=== PATIENT | female | born 1970 | race American Indian/Alaskan Native ===

== ENCOUNTER 2018-08-20 13:00 | Observation (INO) | payer BC ==
[2018-08-20 13:28] VITALS: BMI 38.2
[2018-08-20] MEDS ORDERED: Nitroglycerin 50mg in D5W 50 MG/250 ML BOTTLE IV PRN (13:41)
[2018-08-20 13:48] LABS: BASO # 0.02 K/mm3 (0.0-2.0); BASO % 0.2 % (0.0-3.0); EOS # 0.2 (0.0-0.7); EOS % 1.8 % (1.5-5.0); GRAN # 5.88 (1.4-6.5); GRAN % 64.5 % (50.0-68.0); HEMOGLOBIN 12.8 g/dL (12.0-16.0); LYMPH # 2.5 (1.2-3.4); LYMPH % 27.9 % (22.0-35.0); MEAN CELL VOLUME 88.5 fl (80.0-105.0); MEAN CORPUSCULAR HEMOGLOBIN 28.4 pg (25.0-35.0); MEAN CORPUSCULAR HGB CONC 32.1 g/dl (31.0-37.0); MEAN PLATELET VOLUME 9.5 fl (7.0-11.0); MONO # 0.5 (0.1-0.6); MONO % 5.6 % (1.0-6.0); RBC 4.51 10^6/uL (3.5-6.1); WHITE BLOOD COUNT 9.1 10^3/uL (4.5-11.0)
--- NOTE | 2018-08-20 13:49 | ED PDOC ---
Arrival/HPI - General Chief Complaint: High Blood Pressure Time Seen by Provider: 08/20/18 13:06 Historian: Patient - History of Present Illness Narrative History of Present Illness (Text): 08/20/18 13:48 48 F with PMHx of hypertension, brought into the Emergency department by EMS from work with cc of elevated BP at 160/120. Pt reports she did not take her medication for htn today. Pt notes change in vision, stating she saw "stars" from 10:00-12:00, indicating this has happened in the past when her BP was elevated. Patient notes feeling palpitations after taking double shot espresso to work. Patient states her legs always swell up and it is currently no different from baseline, and notes shortness of breath that is no different from baseline. Pt denies headache, chest pain, dizziness, or any other complaints at this time. PMD: Yasemin Rea Time/Duration: Prior to Arrival Symptom Onset: Sudden Symptom Course: Unchanged Activities at Onset: Light Past Medical History - Provider Review Nursing Documentation Reviewed: Yes - Cardiac Hx Cardiac Disorders: Yes Hx Hypertension: Yes - Psychiatric Hx Substance Use: No Family/Social History - Physician Review Nursing Documentation Reviewed: Yes Family/Social History: Unknown Family HX Smoking Status: Never Smoked Hx Alcohol Use: No Hx Substance Use: No Allergies/Home Meds Allergies/Adverse Reactions: Allergies No Known Allergies Allergy (Verified 08/20/18 13:28) Review of Systems - Physician Review All systems were reviewed & negative as marked: Yes Physical Exam - Physical Exam Narrative Physical Exam (Text): Gen: VS reviewed, alert, well developed, well nourished, nontoxic, mild distress Eye: EOMI, PERRL Neck: no JVD, supple, no adenopathy CV: Rapid heart rate, normal rhythm. Pulm: no distress, clear to auscultation, no wheeze, no rhonchi, breath sounds equal, no rales Abd: soft, nontender, no guarding, no rebound, no rigidity Ext: pitting edema in bilateral lower extremities Skin: good color, no rash, no cyanosis Psych: responds appropriately to questions, normal affect Neuro: oriented x3, CN2-12 intact grossly, motor intact, sensation intact Vital Signs Reviewed: Yes Vital Signs Temp Pulse Resp BP Pulse Ox 08/20/18 13:00 98.2 F 102 H 18 195/139 H 97 Temperature: Afebrile Blood Pressure: Hypertensive Pulse: Tachycardic Respiratory Rate: Normal Appearance: Positive for: Well-Appearing, Non-Toxic, Comfortable Pain Distress: None Mental Status: Positive for: Alert and Oriented X 3 Medical Decision Making ED Course and Treatment: 08/20/18 13:30 Impression: 48 F brought into the Emergency department from work for elevated BP at 160/120 Differential Diagnosis included but are not limited to: Plan: -- EKG -- Labs -- X-Ray of chest -- Nitroglycerin -- Infertility Nurse -- POC Urine test -- Reassess and disposition Progress Notes: 08/20/18 17:21 workup unremarkable however patient remains tachycardic. will admit for observation, cardiac monitoring of heart rate and blood pressure. 08/20/18 19:15 patient is aware of incidental breast finding on CT and will follow up with pcp regarding recommended mammogram - RAD Interpretation Narrative RAD Interpretations (Text): X-Ray of chest reviewed by radiologist, shows: Dictated by: Wendy Banuelos MD Dictated Date/Time: 08/20/18 1415 Impression: No active pulmonary disease. Radiology Orders: 08/20/18 13:35 CHEST PORTABLE [RAD] Stat Gun Tester: Radiologist - EKG Interpretation EKG Interpretation (Text): 08/20/18 13:58 1323: sinus tachycardia at 102 bpm, nml qrs, nml axis, no acute sttw abn Interpreted by ED Physician: Yes - Medication Orders Current Medication Orders: Nitroglycerin/Dextrose (Nitroglycerin 50 Mg/250 Ml D5w) 50 mg in 250 mls @ 1.5 mls/hr IV .Q24H PRN; Protocol PRN Reason: hypertension - Scribe Statement The provider has reviewed the documentation as recorded by the Scribe Christine Davis All medical record entries made by the Scribe were at my direction and personally dictated by me. I have reviewed the chart and agree that the record accurately reflects my personal performance of the history, physical exam, medical decision making, and the department course for this patient. I have also personally directed, reviewed, and agree with the discharge instructions and disposition. Disposition/Present on Arrival - Present on Arrival Any Indicators Present on Arrival: No History of DVT/PE: No History of Uncontrolled Diabetes: No Urinary Catheter: No History of Decub. Ulcer: No History Surgical Site Infection Following: None - Disposition Have Diagnosis and Disposition been Completed?: Yes Diagnosis: Hypertension, Tachycardia Disposition: HOSPITALIZED Disposition Time: 20:26 Patient Plan: Observation Condition: GOOD
[2018-08-20 13:58] LABS: ALB/GLOB RATIO 1.1 (1.1-1.8); ALBUMIN 4.5 g/dL (3.0-4.8); BLOOD UREA NITROGEN 12 mg/dL (7-21); CALCIUM 9.5 mg/dL (8.4-10.5); GFR NON-AFRICAN AMERICAN > 60
[2018-08-20 14:02] LABS: INR 1.01; PARTIAL THROMBOPLASTIN TIME 28.4 Seconds (25.1-36.5); PROTHROMBIN TIME 11.6 SECONDS (9.4-12.5)
[2018-08-20 14:08] LABS: B-TYPE NATRIURETIC PEPTIDE 36.6 pg/mL (0-450); TROPONIN I < 0.01 ng/mL
[2018-08-20 14:16] LABS: ALT/SGPT 37 U/L (7-56); AST/SGOT 34 U/L (14-36)
--- NOTE | 2018-08-20 14:19 | RAD ---
Date of service: 08/20/2018 HISTORY: CHF COMPARISON: No prior. FINDINGS: LUNGS: The lungs are well inflated and clear. PLEURA: No pleural effusions or pneumothorax. CARDIOVASCULAR: The heart is normal in size. No aortic atherosclerotic calcification present. OSSEOUS STRUCTURES: Within normal limits for the patient's age. VISUALIZED UPPER ABDOMEN: Normal. OTHER FINDINGS: None. IMPRESSION: No active pulmonary disease.
--- NOTE | 2018-08-20 15:03 | CT ---
Date of service: 08/20/2018 PROCEDURE: CT HEAD WITHOUT CONTRAST. HISTORY: ?ICH, severe hypertension with visual disturbance COMPARISON: None available. TECHNIQUE: Axial computed tomography images were obtained through the head/brain without intravenous contrast. Radiation dose: Total exam DLP = 909.16 mGy-cm. This CT exam was performed using one or more of the following dose reduction techniques: Automated exposure control, adjustment of the mA and/or kV according to patient size, and/or use of iterative reconstruction technique. FINDINGS: HEMORRHAGE: No intracranial hemorrhage. BRAIN: There are mild chronic microangiopathic changes. There is no mass, mass effect or abnormal extra-axial fluid collection. There is no territorial infarction. The midline sagittal structures are normal. VENTRICLES: There is mild age-related global parenchymal volume loss and proportionate enlargement of the ventricles and cortical sulci. CALVARIUM: There is no calvarial fracture or extracranial soft tissue swelling. PARANASAL SINUSES: Predominantly clear. MASTOID AIR CELLS: Predominantly clear. OTHER FINDINGS: None. IMPRESSION: No acute intracranial abnormality. Mild chronic microangiopathic changes and mild age-related global parenchymal volume loss.
[2018-08-20] MEDS ORDERED: Iohexol 350 MG/100 ML VIAL ONE (15:27)
--- NOTE | 2018-08-20 16:55 | CT ---
Date of service: 08/20/2018 PROCEDURE: CT Chest with contrast (Pulmonary Angiogram) HISTORY: pulmonary embolism COMPARISON: Plain radiograph performed earlier the same day. TECHNIQUE: Axial computed tomography images were obtained of the chest in the pulmonary arterial phase of enhancement. Coronal and sagittal reformatted images were created and reviewed. Intravenous contrast dose: 100 mL Omnipaque 350 Radiation dose: Total exam DLP = 463.89 mGy-cm. This CT exam was performed using one or more of the following dose reduction techniques: Automated exposure control, adjustment of the mA and/or kV according to patient size, and/or use of iterative reconstruction technique. FINDINGS: PULMONARY ARTERIES: There are no filling defects in the pulmonary arteries to suggest acute pulmonary embolism. AORTA: No acute findings. No thoracic aortic aneurysm. No aortic atherosclerotic calcification or mural plaque present. LUNGS: The lungs are well inflated and clear. No nodule, mass or pulmonary consolidation. PLEURAL SPACES: No effusion or pneumothorax. HEART: No cardiomegaly. No significant pericardial effusion. LYMPH NODES: No pathologic mediastinal or hilar lymphadenopathy. BONES, CHEST WALL: Within normal limits for the patient's age. No fracture or destructive lesion OTHER FINDINGS: There is an apparent 10 x 6 mm nodular lesion in superior right breast. IMPRESSION: No CTA evidence for acute pulmonary embolism. Clear lungs. 10 x 6 mm nodular lesion in the superior right breast. Correlation and comparison with mammogram is recommended.
--- NOTE | 2018-08-20 17:22 | CARD ---
APPROVED REPORT Date of service: 08/20/2018 EKG Measurement Heart [id number] <Conclusion> Sinus tachycardia Cannot rule out Anterior infarct, age undetermined Abnormal ECG
--- NOTE | 2018-08-20 21:29 | CP.PCM.PN ---
Subjective - Date & Time of Evaluation Date of Evaluation: 08/20/18 Time of Evaluation: 21:25 - Subjective Subjective: 48 year old woman comes in with CC: Dyspnea On Exertion. Palpitation. Elevated blood pressure in both arms. 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 Denies chest pain. EKG-Sinus tachycardia,Q III, Inverted T wave in V2. PMH: HTN.-On Valsartan 160 mg PO daily.On some other BP med, she does not know name of it. Gastritis. DM-Took metformin for 2 months about 3 years ago. Diverticulitis-Admitted to [facility]. Myopia/Hyperopia. Obesity.-States she weighs 240 lb, gained weight recently, can not speicify more. History of numbness of left upper and lower extremity intermittently. Low back pain sometimes. Used alcohol prior to 2011. A/P: Palpitaion. Uncontrolled hypertension. Dyspnea on exertion. Obesity. History of Diabetes Mellitus. R/o ischemic heart disease. Serial EKG. Serial troponin. Echocardiogram. Cardiology consultation. Thyroid profile. Lipid profile. Antihypertensive. GI/DVT prophylaxis. Objective - Vital Signs/Intake and Output Vital Signs (last 24 hours): Temp Pulse Resp BP Pulse Ox 98.2 F 93 H 18 139/84 99 08/20/18 19:05 08/20/18 21:17 08/20/18 21:17 08/20/18 21:17 08/20/18 21:17 - Labs Labs: 08/20/18 13:35 08/20/18 13:35 PT 11.6 SECONDS (9.4-12.5) 08/20/18 13:35 INR 1.01 08/20/18 13:35 APTT 28.4 Seconds (25.1-36.5) 08/20/18 13:35
--- NOTE | 2018-08-21 02:06 | CP.PCM.HP ---
<Kalia Sahni - Last Filed: 08/21/18 05:36> History of Present Illness - History of Present Illness History of Present Illness: Kalia Sahni DO PGY1 - Internal Medicine Services Engineer - Medicine H&P CC: HTN/ Palpitations/ Visual changes 48F w/a PMH of HTN, DM2, Diverticulitis presented to [facility] ED on 08/20/18 after she was found to have an elevated blood pressure at work. Upon presentation, patient reported that earlier in the day she was doing multiple shifts at work during which time she consumed 1 coffee, and one double shot of espresso which is not common for her. She subsequently reported that she had forgotten to take her home BP rx as well. Patient reported that around 10am she started voicing complaints seeing "stars" and palpitations which lasted approximately 1 hr. She reported her BP in both arms were reported to be 160/120 bilaterally. During time of examination she reports all symptoms of palpitations/ visual changes have resolved. Patient denied any episode of chest pain. Upon ROS patient also reported complaints of SOB/Dyspnea which has been worsening over the past two months. She reports that she has to sleep upright w/ 2-3 pillows, swelling of legs bilaterally, shoes feeling tighter, orthopnea, and dry cough at night. She reports she has difficulty lying flat. Patient also reports increased urinary frequency w/o any complaints of burning or itching upon urination. She denies any headache, dizziness, abdominal pain, n/v/d/c. Remainder 12 system ROS is otherwise negative. PMD: L[place] [facility]: [facility]: Valsartan 160mg QD, Unknown diuretic recently started by PMD, Metform in Allergies NKDA: Social: Social EtOH use (holidays), non smoker, PMH: HTN, DM2, PSH: Appy FamHx: MOM - DM, HTN Grand mother - CAD, ID Brother - CAD Father - GI/ Stomach issues? Present on Admission - Present on Admission Any Indicators Present on Admission: No History of DVT/PE: No Past Patient History - Past Social History Smoking Status: Never Smoked - CARDIAC Hx Cardiac Disorders: Yes Hx Hypertension: Yes - PSYCHIATRIC Hx Substance Use: No Meds Allergies/Adverse Reactions: Allergies Allergy/AdvReac Type Severity Reaction Status Date / Time No Known Allergies Allergy Verified 08/20/18 13:28 Physical Exam - Constitutional Appears: Well, Non-toxic, No Acute Distress - Head Exam Head Exam: ATRAUMATIC, NORMOCEPHALIC - Eye Exam Eye Exam: EOMI, Normal appearance, PERRL - ENT Exam ENT Exam: Mucous Membranes Moist, Normal Exam - Neck Exam Additional comments: Obese neck - Respiratory Exam Respiratory Exam: Clear to Auscultation Bilateral, NORMAL BREATHING PATTERN Additional comments: Lung sounds are distant and difficult to appreciate - Cardiovascular Exam Cardiovascular Exam: RRR, +S1, +S2 Additional comments: Heart sounds are distant and difficult to appreciate - GI/Abdominal Exam GI & Abdominal Exam: Normal Bowel Sounds, Soft. absent: Tenderness - Extremities Exam Additional comments: Pedal pulses difficult to appreciate Trace pitting edema 2+ bilaterally from foot to knee. - Neurological Exam Neurological exam: CN II-XII Intact, Oriented x3 - Psychiatric Exam Psychiatric exam: Normal Affect, Normal Mood - Skin Skin Exam: Dry, Intact, Normal Color, Warm Results - Vital Signs Recent Vital Signs: Last Vital Signs Temp 97.6 F 08/21/18 00:01 Pulse 91 H 08/21/18 00:01 Resp 20 08/21/18 00:01 BP 147/104 H 08/21/18 01:03 Pulse Ox 98 08/21/18 00:01 - Labs Result Diagrams: 08/20/18 13:35 08/20/18 13:35 Labs: Laboratory Results - last 24 hr 08/20/18 08/20/18 08/20/18 13:35 13:35 13:35 WBC 9.1 RBC 4.51 Hgb 12.8 Hct 39.9 MCV 88.5 MCH 28.4 MCHC 32.1 RDW 15.0 H Plt Count 313 MPV 9.5 Gran % 64.5 Lymph % (Auto) 27.9 Nash % (Auto) 5.6 Eos % (Auto) 1.8 Baso % (Auto) 0.2 Gran # 5.88 Lymph # (Auto) 2.5 Nash # (Auto) 0.5 Eos # (Auto) 0.2 Baso # (Auto) 0.02 PT 11.6 INR 1.01 APTT 28.4 Sodium 139 Potassium 4.1 Chloride 100 Carbon Dioxide 30 Anion Gap 12 BUN 12 Creatinine 0.8 Est GFR ( Amer) > 60 Est GFR (Non-Af Amer) > 60 POC Glucose (mg/dL) Random Glucose 112 H Calcium 9.5 Magnesium 1.8 Total Bilirubin 0.6 AST 34 ALT 37 Alkaline Phosphatase 87 Troponin I < 0.01 NT-Pro-B Natriuret Pep 36.6 Total Protein 8.8 H Albumin 4.5 Globulin 4.3 Albumin/Globulin Ratio 1.1 Thyroxine (T4) TSH 3rd Generation 08/20/18 08/20/18 08/21/18 13:35 14:55 00:20 WBC RBC Hgb Hct MCV MCH MCHC RDW Plt Count MPV Gran % Lymph % (Auto) Nash % (Auto) Eos % (Auto) Baso % (Auto) Gran # Lymph # (Auto) Nash # (Auto) Eos # (Auto) Baso # (Auto) PT INR APTT Sodium Potassium Chloride Carbon Dioxide Anion Gap BUN Creatinine Est GFR ( Amer) Est GFR (Non-Af Amer) POC Glucose (mg/dL) 96 Random Glucose Calcium Magnesium Total Bilirubin AST ALT Alkaline Phosphatase Troponin I < 0.01 NT-Pro-B Natriuret Pep Total Protein Albumin Globulin Albumin/Globulin Ratio Thyroxine (T4) TSH 3rd Generation 0.91 08/21/18 00:20 WBC RBC Hgb Hct MCV MCH MCHC RDW Plt Count MPV Gran % Lymph % (Auto) Nash % (Auto) Eos % (Auto) Baso % (Auto) Gran # Lymph # (Auto) Nash # (Auto) Eos # (Auto) Baso # (Auto) PT INR APTT Sodium Potassium Chloride Carbon Dioxide Anion Gap BUN Creatinine Est GFR ( Amer) Est GFR (Non-Af Amer) POC Glucose (mg/dL) Random Glucose Calcium Magnesium Total Bilirubin AST ALT Alkaline Phosphatase Troponin I NT-Pro-B Natriuret Pep Total Protein Albumin Globulin Albumin/Globulin Ratio Thyroxine (T4) 8.1 TSH 3rd Generation Assessment & Plan - Assessment and Plan (Free Text) Assessment: 48F w/a PMH of HTN, DM2, Diverticulitis presented to [facility] ED on 08/20/18 after she was found to have an elevated blood pressure at work. Admitted for managemen t and treatment of hypertensive emergency. Plan: ACS r/o - Palpitations in setting of hypertensive emergency Given symptoms at time of presentation and no baseline EKG must r/o ACS Patient has no elevated troponin x2 Patient EKG did show some Q waves in III, and Inverted T wave in V1-V2; No obvious St segment elevations as interpreted by me Will trend one more trop; Follow up morning EKG Lipid panel pending TSH/T4 wnl Cardiology Consulted, Appreciate reccs Hypertensive Emergency 160/120 as reported by patient w/ neurologic + cardiologic symptoms s/p Catapres 0.1mg given in ED: BP at time of evaluation 128/77; Pt. asymptomatic on evaluation Start Hydralazine 10mg IVP Q6H pRN C/w home Norvasc 10mg Suspect CHF due to Chronic MITCHELL/ SOB/ Orthopnea + BL LE Edema BNP wnl; Patient reported being recently started on diuretic by PMD Echo pending Hx DM2 Start ISS LOW - ACHS Fingersticks ACHS A1C PPX: SCD Pepcid 20 BID Patient was seen, examined, discussed w/ attending Dr. Lakisha Sahni DO PGY1 Internal Medicine Services Engineer - Date & Time Date: 08/21/18 Time: 05:54 <Ivette Banuelos - Last Filed: 08/21/18 22:43> Results - Vital Signs Recent Vital Signs: Last Vital Signs Temp 98.6 F 08/21/18 12:00 Pulse 90 08/21/18 12:00 Resp 14 08/21/18 12:00 BP 132/92 H 08/21/18 12:00 Pulse Ox 97 08/21/18 06:00 - Labs Result Diagrams: 08/21/18 10:00 08/21/18 10:00 Labs: Laboratory Results - last 24 hr 08/21/18 08/21/18 08/21/18 00:20 00:20 07:35 WBC RBC Hgb Hct MCV MCH MCHC RDW Plt Count MPV Sodium Potassium Chloride Carbon Dioxide Anion Gap BUN Creatinine Est GFR ( Amer) Est GFR (Non-Af Amer) POC Glucose (mg/dL) 98 Random Glucose Hemoglobin A1c Calcium Phosphorus Magnesium Total Bilirubin AST ALT Alkaline Phosphatase Troponin I < 0.01 Total Protein Albumin Globulin Albumin/Globulin Ratio Triglycerides Cholesterol LDL Cholesterol Direct HDL Cholesterol Thyroxine (T4) 8.1 08/21/18 08/21/18 08/21/18 10:00 10:00 10:00 WBC RBC Hgb Hct MCV MCH MCHC RDW Plt Count MPV Sodium 139 Potassium 4.0 Chloride 100 Carbon Dioxide 32 Anion Gap 11 BUN 12 Creatinine 0.8 Est GFR ( Amer) > 60 Est GFR (Non-Af Amer) > 60 POC Glucose (mg/dL) Random Glucose 102 Hemoglobin A1c 6.2 Calcium 9.6 Phosphorus 3.7 Magnesium 1.9 Total Bilirubin 0.8 AST 31 ALT 29 Alkaline Phosphatase 69 Troponin I < 0.01 Total Protein 8.6 H Albumin 4.4 Globulin 4.1 Albumin/Globulin Ratio 1.1 Triglycerides 78 Cholesterol 172 LDL Cholesterol Direct 113 HDL Cholesterol 36 Thyroxine (T4) 08/21/18 08/21/18 10:00 11:08 WBC 6.8 D RBC 4.56 Hgb 12.7 Hct 40.2 MCV 88.2 MCH 27.9 MCHC 31.6 RDW 15.1 H Plt Count 314 MPV 9.6 Sodium Potassium Chloride Carbon Dioxide Anion Gap BUN Creatinine Est GFR ( Amer) Est GFR (Non-Af Amer) POC Glucose (mg/dL) 106 Random Glucose Hemoglobin A1c Calcium Phosphorus Magnesium Total Bilirubin AST ALT Alkaline Phosphatase Troponin I Total Protein Albumin Globulin Albumin/Globulin Ratio Triglycerides Cholesterol LDL Cholesterol Direct HDL Cholesterol Thyroxine (T4) Attending/Attestation - Attestation I have personally seen and examined this patient.: Yes I have fully participated in the care of the patient.: Yes I have reviewed all pertinent clinical information: Yes Notes (Text): 08/21/18 22:42 Patient was seen when she was in ER. Agree with history, physical examination,assessment and plan.
[2018-08-21 07:03] VITALS: O2SAT 97
[2018-08-21] MEDS: Insulin Lispro (humaLOG) LOW Coverage SC SCH ×2 (08:03→12:29)
[2018-08-21 10:19] LABS: HEMOGLOBIN 12.7 g/dL (12.0-16.0); MEAN CELL VOLUME 88.2 fl (80.0-105.0); MEAN CORPUSCULAR HEMOGLOBIN 27.9 pg (25.0-35.0); MEAN CORPUSCULAR HGB CONC 31.6 g/dl (31.0-37.0); MEAN PLATELET VOLUME 9.6 fl (7.0-11.0); RBC 4.56 10^6/uL (3.5-6.1); RED CELL DISTRIBUTION WIDTH 15.1 % (11.5-14.5); WHITE BLOOD COUNT 6.8 10^3/uL (4.5-11.0)
[2018-08-21 10:41] LABS: LDL CHOLESTEROL 113 mg/dL (0-129)
[2018-08-21 10:42] LABS: ALB/GLOB RATIO 1.1 (1.1-1.8); ALBUMIN 4.4 g/dL (3.0-4.8); ALT/SGPT 29 U/L (7-56); AST/SGOT 31 U/L (14-36); BLOOD UREA NITROGEN 12 mg/dL (7-21); CALCIUM 9.6 mg/dL (8.4-10.5); GFR NON-AFRICAN AMERICAN > 60; HDL CHOLESTEROL 36 mg/dL (29-60)
--- NOTE | 2018-08-21 10:45 | CP.PCM.DIS ---
<Nelson Carrera - Last Filed: 08/21/18 11:31> Provider - Provider Date of Admission: 08/20/18 19:19 Attending physician: Majo Sahni DO Consults: 08/21/18 00:30 Cardiology Consult Routine Comment: Consulting Provider: Sharad Mcneil Consulting Physician: Sharad Mcneil Reason for Consult: uncontrolled HTN Time Spent in preparation of Discharge (in minutes): 35 Hospital Course - Lab Results Lab Results: Most Recent Lab Values WBC 6.8 10^3/uL (4.5-11.0) D 08/21/18 10:00 RBC 4.56 10^6/uL (3.5-6.1) 08/21/18 10:00 Hgb 12.7 g/dL (12.0-16.0) 08/21/18 10:00 Hct 40.2 % (36.0-48.0) 08/21/18 10:00 MCV 88.2 fl (80.0-105.0) 08/21/18 10:00 MCH 27.9 pg (25.0-35.0) 08/21/18 10:00 MCHC 31.6 g/dl (31.0-37.0) 08/21/18 10:00 RDW 15.1 % (11.5-14.5) H 08/21/18 10:00 Plt Count 314 10^3/uL (120.0-450.0) 08/21/18 10:00 MPV 9.6 fl (7.0-11.0) 08/21/18 10:00 Gran % 64.5 % (50.0-68.0) 08/20/18 13:35 Lymph % (Auto) 27.9 % (22.0-35.0) 08/20/18 13:35 [place] % (Auto) 5.6 % (1.0-6.0) 08/20/18 13:35 Eos % (Auto) 1.8 % (1.5-5.0) 08/20/18 13:35 Baso % (Auto) 0.2 % (0.0-3.0) 08/20/18 13:35 Gran # 5.88 (1.4-6.5) 08/20/18 13:35 Lymph # (Auto) 2.5 (1.2-3.4) 08/20/18 13:35 [place] # (Auto) 0.5 (0.1-0.6) 08/20/18 13:35 Eos # (Auto) 0.2 (0.0-0.7) 08/20/18 13:35 Baso # (Auto) 0.02 K/mm3 (0.0-2.0) 08/20/18 13:35 PT 11.6 SECONDS (9.4-12.5) 08/20/18 13:35 INR 1.01 08/20/18 13:35 APTT 28.4 Seconds (25.1-36.5) 08/20/18 13:35 Sodium 139 mmol/L (132-148) 08/20/18 13:35 Potassium 4.1 mmol/L (3.6-5.0) 08/20/18 13:35 Chloride 100 mmol/L (98-107) 08/20/18 13:35 Carbon Dioxide 30 mmol/L (21-33) 08/20/18 13:35 Anion Gap 12 (10-20) 08/20/18 13:35 BUN 12 mg/dL (7-21) 08/20/18 13:35 Creatinine 0.8 mg/dl (0.7-1.2) 08/20/18 13:35 Est GFR ( Amer) > 60 08/20/18 13:35 Est GFR (Non-Af Amer) > 60 08/20/18 13:35 POC Glucose (mg/dL) 98 mg/dL (65-110) 08/21/18 07:35 Random Glucose 112 mg/dL (70-110) H 08/20/18 13:35 Calcium 9.5 mg/dL (8.4-10.5) 08/20/18 13:35 Magnesium 1.8 mg/dL (1.7-2.2) 08/20/18 13:35 Total Bilirubin 0.6 mg/dL (0.2-1.3) 08/20/18 13:35 AST 34 U/L (14-36) 08/20/18 13:35 ALT 37 U/L (7-56) 08/20/18 13:35 Alkaline Phosphatase 87 U/L (38-126) 08/20/18 13:35 Troponin I < 0.01 ng/mL 08/21/18 00:20 NT-Pro-B Natriuret Pep 36.6 pg/mL (0-450) 08/20/18 13:35 Total Protein 8.8 g/dL (5.8-8.3) H 08/20/18 13:35 Albumin 4.5 g/dL (3.0-4.8) 08/20/18 13:35 Globulin 4.3 gm/dL 08/20/18 13:35 Albumin/Globulin Ratio 1.1 (1.1-1.8) 08/20/18 13:35 Thyroxine (T4) 8.1 ug/dL (5.5-11.0) 08/21/18 00:20 TSH 3rd Generation 0.91 mIU/mL (0.46-4.68) 08/20/18 13:35 - Hospital Course Hospital Course: Upon admission, this is a 48 year old female with PMH of HTN, DM2, Diverticulitis presented to [facility] ED on 08/20/18 after she was found to have an elevated blood pressure at work. Patient reported that earlier in the day she was doing multiple shifts at work during which time she consumed 1 coffee, and one double shot of espresso which is not common for her. She subsequently reported that she had forgotten to take her home BP rx as well. Patient reported that around 10am she started voicing complaints seeing "stars" and palpitations which lasted approximately 1 hr. She reported her BP in both arms were reported to be 160/120 bilaterally. During time of examination she reports all symptoms of palpitations/ visual changes have resolved. Patient denied any episode of chest pain. During hospital course, troponins x3 were unremarkable. EKG showed Q waves in lead III which were present, no ST elevations. TSH/T4 were WNL. BP was controlled with norvasc 10mg and patient states all her symptoms had resolved and has no complaints at this time. Head CT was unremarkable, CXR was unremarkable and CT chest did not show PE but did show 10x6mm superior breast nodular lesion. BNP was WNL. Patient was afebrile, no WBC count present and no electrolytes abnormalities noted. Cardiology cleared patient for discharge. Patient instructed to decrease coffee intake. Patient was counseled on importance of medication compliance. She agreed with discharge today and all of her questions were answered. She agreed to be started on new BP medication microzide 12.5mg daily. Discharge Exam - Additional Findings Additional findings: - Constitutional Appears: Well, Non-toxic, No Acute Distress - Head Exam Head Exam: ATRAUMATIC, NORMOCEPHALIC - Eye Exam Eye Exam: EOMI, Normal appearance, PERRL - ENT Exam ENT Exam: Mucous Membranes Moist, Normal Exam - Respiratory Exam Respiratory Exam: Clear to Auscultation Bilateral, NORMAL BREATHING PATTERN Additional comments: - Cardiovascular Exam Cardiovascular Exam: RRR, +S1, +S2 Additional comments: - GI/Abdominal Exam GI & Abdominal Exam: Normal Bowel Sounds, Soft. absent: Tenderness - Extremities Exam Additional comments: non tender, distal pulses +2 B/L. - Neurological Exam Neurological exam: CN II-XII Intact, Oriented x3 - Psychiatric Exam Psychiatric exam: Normal Affect, Normal Mood - Skin Skin Exam: Dry, Intact, Normal Color, Warm Discharge Plan - Discharge Medications Prescriptions: hydroCHLOROthiazide [Microzide] 12.5 mg PO DAILY #30 cap Valsartan [Diovan] 160 mg PO DAILY #30 tab - Follow Up Plan Condition: GOOD Disposition: HOME/ ROUTINE Instructions: High Blood Pressure in Adults, Tachycardia, Controlling Your Blood Pressure Through Lifestyle Additional Instructions: Please follow up with your primary care doctor, Dr. Retana within 3-5 days of discharge. Please continue taking your home medication valsartan. We have given you a script. Please start taking microzide 12.5mg daily. This is for your blood pressure, we haven you a script. Please limit your coffee intake to 1-2 cups per day, and avoid when unnecessary. Please avoid energy shots. As per our discussion, please take your home medications. CT chest showed 10x6mm superior breast nodular lesion. Please follow up with your primary care doctor. Please return to the ED for any new or worsening symptoms. Referrals: Yasemin Retana MD [Family Provider] - <Mark Novak - Last Filed: 08/21/18 17:48> Provider - Provider Date of Admission: 08/20/18 19:19 Attending physician: Majo Sahni DO Consults: 08/21/18 00:30 Cardiology Consult Routine Comment: Consulting Provider: Sharad Mcneil Consulting Physician: Sharad Mcneil Reason for Consult: uncontrolled HTN Hospital Course - Lab Results Lab Results: Most Recent Lab Values WBC 6.8 10^3/uL (4.5-11.0) D 08/21/18 10:00 RBC 4.56 10^6/uL (3.5-6.1) 08/21/18 10:00 Hgb 12.7 g/dL (12.0-16.0) 08/21/18 10:00 Hct 40.2 % (36.0-48.0) 08/21/18 10:00 MCV 88.2 fl (80.0-105.0) 08/21/18 10:00 MCH 27.9 pg (25.0-35.0) 08/21/18 10:00 MCHC 31.6 g/dl (31.0-37.0) 08/21/18 10:00 RDW 15.1 % (11.5-14.5) H 08/21/18 10:00 Plt Count 314 10^3/uL (120.0-450.0) 08/21/18 10:00 MPV 9.6 fl (7.0-11.0) 08/21/18 10:00 Gran % 64.5 % (50.0-68.0) 08/20/18 13:35 Lymph % (Auto) 27.9 % (22.0-35.0) 08/20/18 13:35 [place] % (Auto) 5.6 % (1.0-6.0) 08/20/18 13:35 Eos % (Auto) 1.8 % (1.5-5.0) 08/20/18 13:35 Baso % (Auto) 0.2 % (0.0-3.0) 08/20/18 13:35 Gran # 5.88 (1.4-6.5) 08/20/18 13:35 Lymph # (Auto) 2.5 (1.2-3.4) 08/20/18 13:35 [place] # (Auto) 0.5 (0.1-0.6) 08/20/18 13:35 Eos # (Auto) 0.2 (0.0-0.7) 08/20/18 13:35 Baso # (Auto) 0.02 K/mm3 (0.0-2.0) 08/20/18 13:35 PT 11.6 SECONDS (9.4-12.5) 08/20/18 13:35 INR 1.01 08/20/18 13:35 APTT 28.4 Seconds (25.1-36.5) 08/20/18 13:35 Sodium 139 mmol/L (132-148) 08/21/18 10:00 Potassium 4.0 mmol/L (3.6-5.0) 08/21/18 10:00 Chloride 100 mmol/L (98-107) 08/21/18 10:00 Carbon Dioxide 32 mmol/L (21-33) 08/21/18 10:00 Anion Gap 11 (10-20) 08/21/18 10:00 BUN 12 mg/dL (7-21) 08/21/18 10:00 Creatinine 0.8 mg/dl (0.7-1.2) 08/21/18 10:00 Est GFR ( Amer) > 60 08/21/18 10:00 Est GFR (Non-Af Amer) > 60 08/21/18 10:00 POC Glucose (mg/dL) 106 mg/dL (65-110) 08/21/18 11:08 Random Glucose 102 mg/dL (70-110) 08/21/18 10:00 Hemoglobin A1c 6.2 % (4.2-6.5) 08/21/18 10:00 Calcium 9.6 mg/dL (8.4-10.5) 08/21/18 10:00 Phosphorus 3.7 mg/dL (2.5-4.5) 08/21/18 10:00 Magnesium 1.9 mg/dL (1.7-2.2) 08/21/18 10:00 Total Bilirubin 0.8 mg/dL (0.2-1.3) 08/21/18 10:00 AST 31 U/L (14-36) 08/21/18 10:00 ALT 29 U/L (7-56) 08/21/18 10:00 Alkaline Phosphatase 69 U/L (38-126) 08/21/18 10:00 Troponin I < 0.01 ng/mL 08/21/18 10:00 NT-Pro-B Natriuret Pep 36.6 pg/mL (0-450) 08/20/18 13:35 Total Protein 8.6 g/dL (5.8-8.3) H 08/21/18 10:00 Albumin 4.4 g/dL (3.0-4.8) 08/21/18 10:00 Globulin 4.1 gm/dL 08/21/18 10:00 Albumin/Globulin Ratio 1.1 (1.1-1.8) 08/21/18 10:00 Triglycerides 78 mg/dL (35-160) 08/21/18 10:00 Cholesterol 172 mg/dL (130-200) 08/21/18 10:00 LDL Cholesterol Direct 113 mg/dL (0-129) 08/21/18 10:00 HDL Cholesterol 36 mg/dL (29-60) 08/21/18 10:00 Thyroxine (T4) 8.1 ug/dL (5.5-11.0) 08/21/18 00:20 TSH 3rd Generation 0.91 mIU/mL (0.46-4.68) 08/20/18 13:35 Attending/Attestation - Attestation Notes (Text): Patient seen and examined with the residents, agree with above Noted to have missed her doses of her blood pressure medication congestion on cxr, mild lower ext edema Hemodynamically stable on discharge. Added diuretic therapy on discharge, contin ue with her [facility] HTN management with her medications, instructed on the compliance to her medications and outpt f/u with PMD
[2018-08-21 12:29] VITALS: BP 132/92; PULSE 90; RESP 14; TEMP 98.6
--- NOTE | 2018-08-21 16:22 | CARD ---
APPROVED REPORT Date of service: 08/21/2018 EXAM: Two-dimensional and M-mode echocardiogram with Doppler and color Doppler. INDICATION Hypertension/HCVD 2D DIMENSIONS Left Atrium (2D)3.7 (1.6-4.0cm)IVSd1.2 (0.7-1.1cm) LVDd3.8 (3.9-5.9cm)PWd1.2 (0.7-1.1cm) LVDs2.7 (2.5-4.0cm)FS (%) 29.6 % LVEF (%)57.3 (>50%) M-Mode DIMENSIONS Aortic Root2.20 (2.2-3.7cm)Aortic Cusp Exc.1.70 (1.5-2.0cm) Aortic Valve AoV Peak Xfuxbeee789.0cm/Chadd Peak GR.5mmHg Mitral Valve MV E Yslrgtmb97.6cm/sMV A Omqcsvif78.3cm/sE/A ratio1.3 TDI E/Lateral E'0.0E/Medial E'0.0 Tricuspid Valve TR Peak [id number]/sRAP [id number] Peak Gr.12mmHg [id number] LEFT VENTRICLE The left ventricle is normal size. There is mild concentric left ventricular hypertrophy. The left ventricular function is normal. The left ventricular ejection fraction is within the normal range.57%. RIGHT VENTRICLE The right ventricle is normal size. The right ventricular systolic function is normal. ATRIA The left atrium size is normal. The right atrium size is normal. AORTIC VALVE The aortic valve is normal in structure. MITRAL VALVE The mitral valve is normal in structure. Mitral regurgitation is mild. TRICUSPID VALVE The tricuspid valve is normal in structure. There is trace tricuspid regurgitation. PERICARDIAL EFFUSION There is no pericardial effusion. <Conclusion> The left ventricle is normal size. There is mild concentric left ventricular hypertrophy. The left ventricular function is normal. The left ventricular ejection fraction is within the normal range.57%. The left atrium size is normal. The right atrium size is normal. The aortic valve is normal in structure. The mitral valve is normal in structure. Mitral regurgitation is mild. The tricuspid valve is normal in structure. There is trace tricuspid regurgitation. There is no pericardial effusion.
--- NOTE | 2018-08-22 02:03 | CON ---
DATE: 08/21/2018 REQUESTING PHYSICIAN: Dr. Sahni. REASON FOR CONSULTATION: Accelerated hypertension. HISTORY: This is a 48-year-old woman with a history of hypertension and diabetes who was not feeling well at work earlier today. She reportedly had been working a double shift and had been drinking excess coffee and espresso. She had not taken her blood pressure medications on the day of admission either. She began to have palpitations and visual scotoma and had her blood pressure checked. This was found to be markedly elevated and she was sent to the emergency room for evaluation. She was treated in the emergency room and feels significantly better at this time. She is seen resting in bed on telemetry. She denies any prior cardiac history. She has had no prior chest discomfort or exertional dyspnea. PAST MEDICAL HISTORY: Notable for the problems mentioned above. She has undergone a prior appendectomy as well. MEDICATIONS AT HOME: Include valsartan, metformin, and a diuretic. ALLERGIES: NONE. SOCIAL HISTORY: She drinks rarely. She does not smoke. She works in the [employer]. FAMILY HISTORY: Several members have had premature heart disease. REVIEW OF SYSTEMS: A 10-point review of systems is otherwise unremarkable. PHYSICAL EXAMINATION: GENERAL: She is an overweight middle-aged woman. VITAL SIGNS: Her blood pressure was 140/96 with a pulse of 90, respirations of 16. She is afebrile. HEENT: Normocephalic, atraumatic. NECK: Supple. No JVD noted. CHEST: Few scattered rhonchi heard. HEART: PMI is displaced laterally with soft systolic murmur at low left sternal border. ABDOMEN: Soft, mildly obese, nontender. Normoactive bowel sounds. EXTREMITIES: No clubbing, cyanosis, edema. SKIN: Warm and dry. PSYCHIATRIC: Normal mood and affect. DIAGNOSTIC DATA: White count 9.1, hemoglobin/hematocrit 12.8, 39.9 with platelet count of 313,000. PT/PTT were normal. Potassium 4, BUN/creatinine 12 and 0.8. Troponin is negative. BNP is 36. Chest x-ray reveals normal cardiac silhouette with clear lung vang. Electrocardiogram reveals sinus rhythm with nonspecific ST-T abnormalities. IMPRESSION: 1. Accelerated hypertension, likely exacerbated by medical noncompliance as well as excess caffeine intake. 2. Palpitations and visual scotoma, likely due to the same. 3. History of hypertension. 4. History of diabetes. 5. Obesity. RECOMMENDATIONS: Resumption of oral antihypertensive therapy is advised. An echocardiogram has been ordered and will be reviewed. An eventual screening stress test should be planned given her multiple cardiac risk factors. The need for weight loss, compliance with medication, and a tight control of her risk factors was recommended. If her blood pressure control remains improved, discharge home with outpatient followup will be advised. Thank you for this consultation. George Foote MD [facility] # [id number]
== END 2018-08-21 15:01 | disposition home or self-care (01) ==
LOC: ED 13:00 → ERH 19:19 → 2RNO 22:48
PROVIDERS: ADMIT Hospitalist; ATTEND Hospitalist
DX: I16.1 Hypertensive emergency (principal); I10 Essential (primary) hypertension; E11.9 Type 2 diabetes mellitus without complications; E66.9 Obesity, unspecified; Z68.39 Body mass index [BMI] 39.0-39.9, adult; Z90.49 Acquired absence of other specified parts of digestive tract; Z91.19 Patient's noncompliance with other medical treatment and regimen; H53.459 Other localized visual field defect, unspecified eye; R00.2 Palpitations; K29.70 Gastritis, unspecified, without bleeding; H52.10 Myopia, unspecified eye; H52.00 Hypermetropia, unspecified eye; M54.5 Low back pain; R06.09 Other forms of dyspnea; Z87.19 Personal history of other diseases of the digestive system; Z82.49 Family history of ischemic heart disease and other diseases of the circulatory system; Z83.3 Family history of diabetes mellitus
CPT/HCPCS: 36415; 70450; 71045; 71275; 80053; 80061; 82948; 83036; 83735; 83880; 84100; 84436; 84443; 84484; 85025; 85027; 85610; 85730; 93005; 93306; 96372; 96374; 99285; G0378; J1644; J1940; Q9967